=== PATIENT | male | born 1960 ===

== ENCOUNTER 2017-08-02 10:12 | Day surgery (SDC) | payer SELFPAY ==
[2017-01-16 13:41] VITALS: BMI 19.7
[~2017-08-02 10:12] MED LIST: Phenylephrine 10 mg/ml Inj ONE
[2017-08-02] MEDS ORDERED: Lactated Ringer's 1,000 ML IV ONE (11:18)
[2017-08-02] MEDS ORDERED: Midazolam 2 MG/2 ML VIAL ONE (12:53)
[2017-08-02] MEDS ORDERED: Propofol 10 mg/ml Inj (20 ML) ONE (12:53)
[2017-08-02 13:28] VITALS: TEMP 97
[2017-08-02 13:31] VITALS: BP 101/67; PULSE 59; RESP 18; O2SAT 100
== END 2017-08-02 13:37 | disposition home or self-care (01) ==
LOC: H.ENDO 10:12
PROVIDERS: ATTEND Internal Medicine Gastroenterology
DX: Z12.11 Encounter for screening for malignant neoplasm of colon (principal); K64.8 Other hemorrhoids
CPT/HCPCS: 45378; J7120

== ENCOUNTER 2017-09-18 14:01 | Emergency (ER) | payer SELFPAY ==
[2017-09-18 14:02] VITALS: BMI 19.7
[2017-09-18 14:21] VITALS: BP 132/83; PULSE 81; RESP 18; TEMP 97; O2SAT 98
--- NOTE | 2017-09-18 14:40 | ED PDOC ---
Syncope/Near Syncope/Dizziness Chief Complaint (Provider): dizziness/vertigo History Per: Patient History/Exam Limitations: no limitations Onset/Duration Of Symptoms: Sudden Onset Additional Complaint(s): This is 57 y/o male with PMH of chronic back pain and HLD comes to the ED c/o 2 episodes of dizziness and falls. As per patient, he went out last night around 8 :30pm to smoke, while he was walking on a street, he felt dizzy, lightheaded and fell on a parked car. Patient denies any LOC but admits hitting his face on car and right foot toes injuries. Patient admits same lightheadedness and dizziness again this morning around 7am and fell on his bed. patient denies any LOC but admits feeling of things moving around his eyes and heart racing before this episodes. Patient had same episode 5 months ago as well. Patient denies any chest pain, dyspnea, blurred vision, tinnitus, abdo pain or urinary symptoms. Wolof speaking male[id number] PMD: [facility] PMH:chronic back pain and HLD PSH: [place]omach [place] Meds: Ibuprofen 800mg PRN for pain Allg: Denies any drug or food allergies FH: denies any medical history SH: Occasional Alcohol use and half pack a week cig smoking, denies any illicit drug use ROS: as per HPI <Pedro Pablo Lewis - Last Filed: 09/18/17 17:04> <Franklin De La Paz - Last Filed: 09/18/17 17:19> Time Seen by Provider: 09/18/17 14:23 Chief Complaint (Nursing): Syncope Supervising Attending Note - Supervising Attending Note The Documented history was done by the: Physician Industrial Ecology Technician The documented physical exam was done by the: Physician Industrial Ecology Technician The documented procedures were done by the: Physician Industrial Ecology Technician - Attestation: I have personally seen and examined this patient.: Yes I have fully participated in the care of the patient.: Yes I have reviewed all pertinent clinical information: Yes - Notes: Notes:: Here with dizziness episodes like room spinning. Fell with these episodes. Currently not dizzy. No chest pain, dyspnea, palpitation, numbness, tingles, weakness at anytime. <Franklin De La Paz - Last Filed: 09/18/17 17:19> Past Medical History Vital Signs: Last Vital Signs Temp 97 F L 09/18/17 14:16 Pulse 81 09/18/17 14:16 Resp 18 09/18/17 14:16 BP 132/83 09/18/17 14:16 Pulse Ox 98 09/18/17 14:16 - Medical History PMH: Hypercholesterolemia - Family History Family History: States: Unknown Family Hx <Pedro Pablo Lewis - Last Filed: 09/18/17 17:04> Reviewed: Nursing Documentation, Vital Signs Vital Signs: Last Vital Signs Temp 97 F L 09/18/17 14:16 Pulse 81 09/18/17 14:16 Resp 18 09/18/17 14:16 BP 132/83 09/18/17 14:16 Pulse Ox 98 09/18/17 17:07 - Surgical History Surgical History: No Surg Hx - Family History Family History: States: Unknown Family Hx - Social History Alcohol: None Drugs: Denies <Franklin De La Paz - Last Filed: 09/18/17 17:19> - Home Medications Home Medications: Ambulatory Orders Medication Instructions Recorded No Known Home Med 08/02/17 - Allergies Allergies/Adverse Reactions: Allergies Allergy/AdvReac Type Severity Reaction Status Date / Time No Known Allergies Allergy Verified 08/02/17 12:08 Review of Systems ROS Statement: Except As Marked, All Systems Reviewed And Found Negative ENT: Positive for: Mouth Pain Musculoskeletal: Positive for: Foot Pain Neurological: Positive for: Dizziness <Franklin De La Paz - Last Filed: 09/18/17 17:19> Physical Exam - Physical Exam Appears: Positive for: No Acute Distress Head Exam: Positive for: NORMOCEPHALIC (right upper lip swelling with out any open wound due to fall ) Skin: Positive for: Normal Color, Warm Eye Exam: Positive for: Normal appearance, EOMI, Other (no septal hematoma ). Negative for: Nystagmus, Periorbital swelling, Conjunctival injection Neck: Positive for: Normal, Painless ROM, Supple Cardiovascular/Chest: Positive for: Regular Rate, Rhythm, Chest Non Tender. Negative for: Edema, Murmur Respiratory: Positive for: Normal Breath Sounds. Negative for: Accessory Muscle Use Gastrointestinal/Abdominal: Positive for: Normal Exam, Soft, Organomegaly, Distended Back: Negative for: L CVA Tenderness, R CVA Tenderness Extremity: Positive for: Normal ROM, Capillary Refill, Other (right foot injury due to a fall; first toe avulsion injury, third toe laceration with mild fresh bleeding). Negative for: Pedal Edema Neurologic/Psych: Positive for: Alert, interventional technologist II-XII, Oriented <Pedro Pablo Lewis - Last Filed: 09/18/17 17:04> - Physical Exam ENT: Positive for: Other (R upper lip swelling mild; no laceration; no septal hematoma) Neurologic/Psych: Positive for: Alert, interventional technologist II-XII, Oriented. Negative for: Motor/Sensory Deficits, Aphasia, Facial Droop <Franklin De La Paz - Last Filed: 09/18/17 17:19> - Laboratory Results Result Diagrams: 09/18/17 15:55 - ECG O2 Sat by Pulse Oximetry: 98 - Progress ED Course And Treament: A/P: 57 y/o male with falls associated with dizziness/lightheadedness and right foot toes injuries due to a fall. - Head CT - EKG - Troponin - CMP, CBC, IVF - Orthostatic BP - X-ray right foot/toes - Podiatry consulted Case discussed and patient seen with Dr. De La Paz 14:55- Right foot X-ray: No acute changes or fractures 14:55- Head CT: negative for any acute changes or bleeding 14:55- podiatry evaluated patient and removed third toe nail under local Lidocaine, dressing was done, Rec' follow up visit to Podiatry clinic on 09/26/17 14;55- BMP with in normal limits <Pedro Pablo Lewis - Last Filed: 09/18/17 17:04> - Laboratory Results Result Diagrams: 09/18/17 15:55 Interpretation Of Abn Labs: 33 bun - ECG ECG: Positive for: Interpreted By Me, Viewed By Me ECG Rhythm: Positive for: Normal QRS, Normal ST Segment, Sinus Rhythm - Radiology X-Ray: Read By Radiologist X-Ray Interpretation: No Acute Disease - CT Scan/US head Other Rad Studies (CT/US): Read By Radiologist - Progress ED Course And Treament: 1712: Podiatry saw pt. Dressed wound after procedure. Fu with clinic. AAOx3. No dizziness. Likely from dehydration. Ambulated with no issues. Tolerated PO. <Franklin De La Paz - Last Filed: 09/18/17 17:19> Disposition - Disposition Disposition Time: 17:00 <Pedro Pablo Lewis - Last Filed: 09/18/17 17:04> - Patient ED Disposition Is Patient to be Admitted: No Counseled Patient/Family Regarding: Studies Performed, Diagnosis, Need For Followup - Disposition Disposition: Routine/Home <Franklin De La Paz - Last Filed: 09/18/17 17:19> - Clinical Impression Clinical Impression: Dizziness, Toe injury, Dehydration - Disposition Referrals: Podiatry Clinic [Outside] - 09/20/17 [facility] [Outside] - 09/20/17 Condition: STABLE Additional Instructions: Return if not better in 3 days. Instructions: Dehydration (ED), Dizziness (ED), Laceration (ED) Forms: [employer] [facility] (Mauritian)
[2017-09-18] MEDS ORDERED: Sodium Chloride 0.9% 500 ML IV STA (14:55)
--- NOTE | 2017-09-18 15:48 | RAD ---
PROCEDURE: Right Foot Radiographs. HISTORY: pain COMPARISON: None. FINDINGS: BONES: Normal. No fracture. JOINTS: Hallux valgus. No evidence of arthritis. SOFT TISSUES: Normal. OTHER FINDINGS: None. IMPRESSION: No acute fracture
[2017-09-18 16:17] LABS: CALCIUM 8.8 mg/dL (8.4-10.2); GFR AFRICAN-AMERICAN > 60; GFR NON-AFRICAN AMERICAN > 60
[2017-09-18] MEDS ORDERED: Povidone Iodine Topical 10% Sol ONE (16:18)
[2017-09-18] MEDS ORDERED: Lidocaine 1% Inj (20ml) ONE (16:21)
[2017-09-18] MEDS ORDERED: Silver Sulfadiazine 1% CREAM (50 gm) ONE (16:23)
[2017-09-18 16:25] LABS: ALB/GLOB RATIO 1.3 (1.0-2.1); ALT/SGPT 40 U/L (21-72); AST/SGOT 46 U/L (17-59); BLOOD UREA NITROGEN 33 mg/dl (9-20)
[2017-09-18] MEDS ORDERED: Lidocaine 100 MG in Sodium Chloride 0.9% 100 ML IV ONE (16:30)
--- NOTE | 2017-09-18 16:44 | CT ---
PROCEDURE: CT HEAD WITHOUT CONTRAST. HISTORY: Headache, dizziness COMPARISON: None available. TECHNIQUE: Axial computed tomography images were obtained through the head/brain without intravenous contrast. Radiation dose: Total exam DLP = 834.54 mGy-cm. This CT exam was performed using one or more of the following dose reduction techniques: Automated exposure control, adjustment of the mA and/or kV according to patient size, and/or use of iterative reconstruction technique. FINDINGS: HEMORRHAGE: No intracranial hemorrhage. BRAIN: No mass effect or edema. No atrophy or chronic microvascular ischemic changes. VENTRICLES: Unremarkable. No hydrocephalus. CALVARIUM: Unremarkable. PARANASAL SINUSES: Unremarkable as visualized. No significant inflammatory changes.Incidental finding(s): Hypoplastic frontal air cells MASTOID AIR CELLS: Unremarkable as visualized. No inflammatory changes. OTHER FINDINGS: None. IMPRESSION: No acute intracranial abnormalities. No significant findings to account for the clinical presentation.
--- NOTE | 2017-09-18 16:48 | CP.PCM.CON ---
History of Present Illness - History of Present Illness History of Present Illness: 57 y/o male with PMHx of HLD and chronic low back pain seen in ED by podiatry after falling yesterday and injuring his toes. Patient says he noticed bleeding from the bottom of the foot and the 3rd toenail. Denies seeing any pus drain from either site. Admits to pain in the blister on the bottom of the foot but denies pain to the right 3rd toe where the nail is coming off. Denies attempting any at home treatment. Denies F/C/N/V/CP/SOB. PSH: stomach surgery All: NKDA Social: social EtOH, 6-10 cigs/day; denies illicit drug use Fam Hx: denies Review of Systems - Review of Systems All systems: reviewed and no additional remarkable complaints except (per HPI) Past Patient History - Past Medical History & Family History Past Medical History?: Yes - Past Social History Smoking Status: Heavy Smoker > 10 Cigarettes Daily - CARDIAC Hx Hypercholesterolemia: Yes - PSYCHIATRIC Hx Substance Use: No - SURGICAL HISTORY Hx Surgeries: Yes Hx Musculoskeletal Surgery: Yes - ANESTHESIA Hx Anesthesia: Yes Hx Anesthesia Reactions: No Hx Malignant Hyperthermia: No Meds Allergies/Adverse Reactions: Allergies Allergy/AdvReac Type Severity Reaction Status Date / Time No Known Allergies Allergy Verified 08/02/17 12:08 - Medications Medications: Current Medications Sodium Chloride (Sodium Chloride 0.9%) 500 mls @ 100 mls/hr IV .Q5H STA Stop: 09/18/17 19:54 Last Admin: 09/18/17 15:32 Dose: 100 mls/hr Silver Sulfadiazine (Silvadene 1% 20 Gm) 0 ea TOP 5XD JOSH Physical Exam - Constitutional Appears: Well, Non-toxic, No Acute Distress - Head Exam Head Exam: ATRAUMATIC, NORMOCEPHALIC - Eye Exam Eye Exam: Normal appearance Pupil Exam: PERRL - ENT Exam ENT Exam: Mucous Membranes Moist - Neck Exam Neck exam: Positive for: Normal Inspection - Respiratory Exam Respiratory Exam: Clear to Auscultation Bilateral - Cardiovascular Exam Cardiovascular Exam: REGULAR RHYTHM, +S1, +S2 - GI/Abdominal Exam GI & Abdominal Exam: Normal Bowel Sounds, Soft. absent: Distended - Rectal Exam Rectal Exam: Deferred - Extremities Exam Additional comments: Lower extremity exam: Vasc: DP/PT pulses palpable 2/4 B/L. Temperature gradient warm to cool B/L. CFT < 3 sec to all digits. No pedal edema noted Derm: 0.8cm diameter circular blood blister noted sub met 1 R foot with no surrounding erythema, purulence, fluctuance; stable. Onycholysis noted to proximal nail fold of right foot 3rd digit toenail with 0.2cm deep laceration noted proximal and underneath proximal nail fold. Mild sanguinous drainage noted to right 3rd toe. No erythema surrounding digit, no purulence, no malodor Neuro: Protective sensation grossly intact Ortho: Moderate tenderness to palpation of blood blister right foot sub met 1, mild tenderness to palpation of right 3rd toenail - Neurological Exam Neurological exam: Alert, Oriented x3 - Psychiatric Exam Psychiatric exam: Normal Affect, Normal Mood - Skin Skin Exam: Warm Results - Vital Signs Recent Vital Signs: Last Vital Signs Temp 97 F L 09/18/17 14:16 Pulse 81 09/18/17 14:16 Resp 18 09/18/17 14:16 BP 132/83 09/18/17 14:16 Pulse Ox 98 09/18/17 16:31 - Labs Result Diagrams: 09/18/17 16:55 09/18/17 15:55 Labs: Laboratory Results - last 24 hr 09/18/17 15:55 Sodium 139 Potassium 4.3 Chloride 104 Carbon Dioxide 25 Anion Gap 14 BUN 33 H Creatinine 0.8 Est GFR ( Amer) > 60 Est GFR (Non-Af Amer) > 60 Random Glucose 86 Calcium 8.8 Total Bilirubin 0.7 AST 46 ALT 40 Alkaline Phosphatase 49 Troponin I < 0.0120 Total Protein 7.1 Albumin 4.0 Globulin 3.0 Albumin/Globulin Ratio 1.3 Assessment & Plan - Assessment and Plan (Free Text) Assessment: 57 y/o male with right foot 3rd digit onycholysis and sub met 1 blood blister secondary to trauma Plan: Pt seen and evaluated in ED Discussed plan with attending Dr. Martin Cleansed right foot blister and right 3rd toenail with sterile betadine infused saline solution Explained to patient the procedure of local anesthesia with removal of toenail to ensure he did not have a deep laceration, including discussion of all risks, benefits and alternatives to procedure Patient expressed verbal consent 6cc of Lidocaine 1% plain injected in V block digital fashion to right 3rd digit Total nail avulsion performed with removal of right 3rd digit toenail Pt tolerated procedure without incident Cleansed underlying nail bed with saline and dressed with bacitracin and DSD Pt instructed to keep dressing intact for 48 hours, at which time he should remove it and soak in warm water Pt to continue warm water soaks and reapply bacitracin and bandaid daily Pt to follow up within 1 week in [facility] podiatry clinic Thank you for this consult
[2017-09-18] MEDS ORDERED: Silver Sulfadiazine 1% Cream (20 gm) TOP SCH (17:00)
[2017-09-18 17:16] LABS: BASO % 0.6 % (0.0-2.0); EOS % 0.3 % (0.0-4.0); HEMOGLOBIN 14.1 g/dL (12.0-18.0); LYMPH # 1.3 K/uL (1.0-4.3); LYMPH % 18.2 % (20.0-40.0); MEAN CELL VOLUME 91.4 fl (80.0-94.0); MEAN CORPUSCULAR HEMOGLOBIN 30.1 pg (27.0-31.0); MEAN CORPUSCULAR HGB CONC 32.9 g/dL (33.0-37.0); MEAN PLATELET VOLUME 8.6 fl (7.2-11.7); MONO # 0.7 K/uL (0.0-0.8); MONO % 9.5 % (0.0-10.0); NEUT % 71.4 % (50.0-75.0); NRBC % 0.1 % (0.0-0.0); RBC 4.69 Mil/uL (4.40-5.90); RED CELL DISTRIBUTION WIDTH 14.3 % (11.5-14.5)
--- NOTE | 2017-09-19 10:54 | CARD ---
APPROVED REPORT EKG Measurement Heart [id number] <Conclusion> Normal sinus rhythm Early repolarization Normal ECG
== END 2017-09-18 17:30 | disposition home or self-care (01) ==
LOC: H.ER 14:01
DX: L60.1 Onycholysis (principal); S90.821A Blister (nonthermal), right foot, initial encounter; E86.0 Dehydration; F17.210 Nicotine dependence, cigarettes, uncomplicated; G89.29 Other chronic pain
CPT/HCPCS: 70450; 73630; 80053; 84484; 85025; 90471; 90715; 93005; 99285; J2001; J7040